=== PATIENT | male | born 1985 | race African-American/Black ===

== ENCOUNTER 2018-04-28 12:34 | Emergency (ER) | payer SELFPAY ==
[2018-04-28 12:44] VITALS: BP 138/63
[2018-04-28] MEDS ORDERED: PREDNISONE 20 MG TABLET PO ONE (13:01)
[2018-04-28] MEDS ORDERED: DIPHENHYDRAMINE HCL 50 MG CAPSULE PO ONE (13:01)
[2018-04-28] MEDS ORDERED: FAMOTIDINE 20 MG TABLET PO ONE (13:01)
--- NOTE | 2018-04-28 13:05 | ER Document Report ---
HPI - HPI Patient complains to provider of: Upper lip swelling Onset: Just prior to arrival Onset/Duration: Sudden Quality of pain: Burning Pain Level: 2 Context: Patient states that [place] and had left upper lip pain with swelling. Patient states that he suspects that he likely was stung by a bee but states that whenever he looked down he saw a snake on the ground. Patient does not recall having a snake bite him in the face. Patient only became concerned about the snake because he noticed it on the ground. Patient denies any difficulty breathing tongue swelling or throat swelling. Associated Symptoms: Other - Left upper lip swelling Exacerbated by: Denies Relieved by: Denies Similar symptoms previously: No Recently seen / treated by doctor: No - ROS ROS below otherwise negative: Yes Systems Reviewed and Negative: Yes All other systems reviewed and negative - EENT EENT: DENIES: Congestion Notes: Lip swelling - NEURO Neurology: DENIES: Headache - RESPIRATORY Respiratory: DENIES: Trouble Breathing, Coughing - GASTROINTESTINAL Gastrointestinal: DENIES: Nausea, Patient vomiting - DERM Skin Color: Normal Skin Problems: None Past Medical History - General Information source: Patient - Social History Smoking Status: Never Smoker Frequency of alcohol use: None Drug Abuse: None Occupation: [employer] Family History: Reviewed & Not Pertinent - Medical History Medical History: Negative Surgical Hx: Negative Vertical Provider Document - CONSTITUTIONAL Agree With Documented VS: Yes Exam Limitations: No Limitations General Appearance: WD/WN, No Apparent Distress - INFECTION CONTROL TRAVEL OUTSIDE OF THE [place] IN LAST 30 DAYS: No - HEENT HEENT: Atraumatic, Normocephalic. negative: Pharyngeal Exudate, Pharyngeal Tenderness, Pharyngeal Erythema, Tympanic Membrane Red, Tympanic Membrane Bulging Mouth Diagram: 1 - Swelling to left lateral upper lip - NECK Neck: Normal Inspection, Supple. negative: Lymphadenopathy-Left, Lymphadenopathy-Right - RESPIRATORY Respiratory: Breath Sounds Normal, No Respiratory Distress - CARDIOVASCULAR Cardiovascular: Regular Rate, Regular Rhythm - BACK Back: Normal Inspection - MUSCULOSKELETAL/EXTREMETIES Musculoskeletal/Extremeties: MAEW - NEURO Level of Consciousness: Awake, Alert, Appropriate Motor/Sensory: No Motor Deficit - DERM Integumentary: Warm, Dry, No Rash Course - Re-evaluation Re-evalutation: 04/28/18 13:02 Patient reports that he was cutting brush while standing and with a chawla on. Patient uncertain of the exact mechanism of injury suspects that it could have been a bee sting to the lip although he looked down and did notice a snake on the ground which had an concerned about the possibility of a snakebite although patient denies having any snake in his face attached to his lip. Patient with localized swelling. No potential airway compromise. Patient without any other symptoms. Will treat symptomatically at this time. Good return precautions provided. - Vital Signs Vital signs: Temp Pulse Resp BP Pulse Ox 98 F 86 16 138/63 H 95 04/28/18 12:43 04/28/18 12:43 04/28/18 12:43 04/28/18 12:43 04/28/18 12:43 Discharge - Discharge Clinical Impression: Insect sting Qualifiers: Encounter type: initial encounter Injury intent: undetermined intent Qualified Code(s): T63.484A - Toxic effect of venom of other arthropod, undetermined, initial encounter Condition: Stable Disposition: HOME, SELF-CARE Instructions: Use of Diphenhydramine, Insect Sting ([facility]), Steroid Medication Additional Instructions: Return immediately for any new or worsening symptoms Followup with your primary care provider, call tomorrow to make a followup appointment Take Benadryl [id number] to help with your symptoms Prescriptions: Famotidine [Pepcid 20 mg Tablet] 20 mg PO BID #12 tablet Prednisone [Deltasone 10 mg Tablet] 10 mg PO ASDIR PRN #21 tablet PRN Reason: Referrals: [facility] [Provider Group] - Follow up as needed
== END 2018-04-28 13:19 | disposition home or self-care (01) ==
LOC: ER 12:34
DX: T63.484A Toxic effect of venom of other arthropod, undetermined, initial encounter (principal); R22.0 Localized swelling, mass and lump, head; X58.XXXA Exposure to other specified factors, initial encounter; Y93.H2 Activity, gardening and landscaping
CPT/HCPCS: 99281; J7512